=== PATIENT | female | born 1945 | race Caucasian/White ===

== ENCOUNTER → 2016-12-03 | Outpatient (CLI) | payer MEDICARE, OTHER ==
[~2016-12-03] MED LIST: ALPRAZOLAM0.5 MG PO; CALCIUM + D 6001 TA1 PO; HYDROCHLOROTH12.5 MG PO; LOTREL 5/10 MG1 CAP PO; OMEPRAZOLE20 M1 PO; PRAVASTATIN SOD40 MG PO; TOPROL XL50 MG; ZOLOFT50 MG PO
--- NOTE | ~2016-12-03 | US37 ---
[facility] A Service of [facility] RADIOLOGY TEXT RESULTS PATIENT: TRISTIN BAILEY LOCATION: CNIV : 49 UNIT #: [id number] AGE: [address]: MICHELLE BRAGG MD SEX: F ORDER DR: [id number] [facility] [address] [place], [place] [address] [id number] O MR#: [id number] Acc #: [id number] NAME: TRISTIN BAILEY : 1945 SEX: F STUDY DATE/TIME: 12/03/2016 13:51 UNIT: [facility]IV ROOM: STUDY DESCRIPTION: US Carotid W/Doppler Bilateral Attending Physician: Michelle Bragg M.D. Referring Physician: Michelle Bragg M.D. Ordering Physician: Michelle Bragg M.D. Primary Care Physician: Michelle Bragg M.D. MEDICAL IMAGING REPORT This report is preliminary unless electronic signature is present EXAM Carotid duplex ultrasound 12/03/2016 INDICATION Numbness in the hands intermittently for greater than 1 year. Carotid stenosis. FINDINGS Coles-scale, color flow, and spectral Doppler waveform analysis is performed of the carotid and vertebral vasculature. No comparison. There is minimal plaque in the carotid bulbs. Peak velocities in the common carotid and internal carotid arteries are within the range of normal by NASCET criteria, as are the IC/CC ratios. Peak ICA systolic velocity on the right side of the neck is in the mid vessel at 0.66 m/sec. Peak ICA systolic velocity on the left side of the neck is in the distal vessel at 0.58 m/sec. Peak external carotid velocities are normal. There is antegrade flow in both vertebral arteries. IMPRESSION Minimal plaque disease in the bulbs. No evidence of stenosis by NASCET criteria. Antegrade flow in the vertebral arteries. Dictated by... Jadon Dela Cruz Jr., M.D. THIS IS AN ELECTRONICALLY VERIFIED REPORT Jadon Dela Cruz Jr., M.D. at 12/04/2016 4:45 PM JUAN/shara TD: 12/04/2016 13:39 JOB #: [id number] [facility] A Service of [facility] RADIOLOGY TEXT RESULTS PATIENT: TRISTIN BAILEY LOCATION: [facility] : [birth year] UNIT #: [id number] AGE: [address]: MICHELLE BRAGG MD SEX: F ORDER DR: MEDICAL IMAGING REPORT Page 1 of 1 COPY
== END | disposition home or self-care (01) ==
LOC: CNIV 13:28
DX: I65.23 Occlusion and stenosis of bilateral carotid arteries (principal)
CPT/HCPCS: 93880